=== PATIENT | male | born 1960 | race Caucasian/White ===

== ENCOUNTER 2020-12-12 10:53 | Inpatient (IN) | payer MEDICAID ==
[~2020-12-12] VITALS: Ht 165.1 cm; Wt 69.9 kg
[2020-12-12] MEDS ORDERED: HYDROMORPHONE 1 MG/1 ML DISP.SYRIN IM ONE (11:15)
[2020-12-12] MEDS ORDERED: ONDANSETRON ODT 4 MG TAB.RAPDIS SL ONE (11:15)
[2020-12-12] MEDS ORDERED: ONDANSETRON ODT 4 MG TAB.RAPDIS ONE (11:24)
[2020-12-12] MEDS ORDERED: HYDROMORPHONE 1 MG/1 ML DISP.SYRIN ONE (11:24)
--- NOTE | 2020-12-12 11:43 | NUR ---
Pt was rollerskating, tripped and another skater fell ontop of right lower leg. Pt has swelling about 1/[address] down tibia, unstable area, distal PMS intact, cap refill < 2sec., dorsi and plantar flexion limited. Pt denies CP, SOB, dizziness, n/v, no other complaints, no distress noted.
[2020-12-12] MEDS ORDERED: CEFAZOLIN 2 G in IV DEXTROSE 5% 100 ML IV ONE (14:00)
[2020-12-12] MEDS ORDERED: Z GUARD REMEDY PASTE 57 GM TUBE TOP PRN (15:15)
[2020-12-12] MEDS ORDERED: HYDROCODONE/APAP 5-325MG TABLET PO PRN (15:15)
[2020-12-12] MEDS ORDERED: IV NS 1000 ML 1,000 ML IV PRN (15:15)
[2020-12-12] MEDS ORDERED: MAGNESIUM HYDROXIDE 30 ML LIQUID UDC PO PRN (15:15)
[2020-12-12] MEDS ORDERED: ACETAMINOPHEN 325 MG TABLET PO PRN (15:15)
[2020-12-12] MEDS ORDERED: ONDANSETRON 4 MG/2 ML VIAL IV PRN (15:15)
[2020-12-12 15:23] LABS: BASOPHILS # (AUTO) 0.1 K/uL (0.0-8.0); BASOPHILS % (AUTO) 0.3 % (0.0-2.0); EOSINOPHILS % (AUTO) 0.1 % (0.0-7.0); HEMATOCRIT 49.8 % (36.7-47.1); HEMOGLOBIN 16.6 g/dL (12.5-16.3); LYMPHOCYTES # (AUTO) 1.6 K/uL (20.0-40.0); LYMPHOCYTES % (AUTO) 10.4 % (20.5-51.5); MEAN CORPUSCULAR HEMOGLOBIN 28.5 uug (23.8-33.4); MEAN CORPUSCULAR HGB CONC 33 g/dL (32.5-36.3); MEAN CORPUSCULAR VOLUME 85.6 fL (73.0-96.2); MONOCYTES % (AUTO) 6.8 % (0.0-11.0); NEUTROPHILS # (AUTO) 12.5 K/uL (1.8-8.9); NEUTROPHILS % (AUTO) 82.4 % (38.5-71.5); PLATELET COUNT (AUTO) 353 K/uL (152-348); RED BLOOD CELL COUNT(AUTO) 5.81 MIL/uL (4.06-5.63); WHITE BLOOD COUNT (AUTO) 15.2 K/uL (3.6-10.2)
[2020-12-12] MEDS ORDERED: CEFAZOLIN 1 G VIAL ONE (15:23)
--- NOTE | 2020-12-12 15:45 | NUR ---
Pt resting in bed, no further complaints, no distress noted. States pain is controlled.
[2020-12-12 16:05] LABS: BILIRUBIN,DIRECT 0.2 mg/dL (0.0-0.2); BILIRUBIN,TOTAL 0.8 mg/dL (0.2-1.0); CREATININE 0.8 mg/dL (0.6-1.3); POTASSIUM 3.7 mmol/L (3.5-5.1)
--- NOTE | 2020-12-12 18:45 | NUR ---
long leg posterior splint applied and secured with wrap. PMS intact after, cap refill < 2sec.
[2020-12-12] MEDS ORDERED: ACETAMINOPHEN 325 MG TABLET ONE (22:52)
--- NOTE | 2020-12-13 00:10 | NUR ---
Patient is resting in bed peacefully, no distress noted, no complaints.
--- NOTE | 2020-12-13 04:32 | NUR ---
Patient is resting in bed with eyes closed, no distress noted at this time.
--- NOTE | 2020-12-13 07:42 | NUR ---
(Pandemic disaster charting with no appropriate staffing ratio obeserved in ER) Script Artist assumes care : Patient is AOx4, patient is irritated re:delay in ortho surgery for his fractured extremity, respiration:easy, distal pulses to affected site: strong & palpable, patient is able to move all toes, CMS intact, +posterior leg mold is intact, pending available inpatient nonCOVID medical-surgical bed & nurse@this time, patient denies intolerable pains. Comfort & safety measures maintained.
--- NOTE | 2020-12-13 08:54 | NUR ---
ER staff explained re: COVID pandemic impact on bed & staffing availability and plan of care for extremity fracture (in [place] language) by RN Jose. Patient is understanding, calm & cooperative, still no bed or inpatient nurse available@this time, NPO maintained.
[2020-12-13 10:28] LABS: BASOPHILS # (AUTO) 0.1 K/uL (0.0-8.0); BASOPHILS % (AUTO) 0.5 % (0.0-2.0); EOSINOPHILS # (AUTO) 0.1 K/uL (0.0-0.7); EOSINOPHILS % (AUTO) 1.1 % (0.0-7.0); HEMATOCRIT 49.6 % (36.7-47.1); HEMOGLOBIN 16.5 g/dL (12.5-16.3); LYMPHOCYTES # (AUTO) 1.8 K/uL (20.0-40.0); LYMPHOCYTES % (AUTO) 16.9 % (20.5-51.5); MEAN CORPUSCULAR HEMOGLOBIN 28.6 uug (23.8-33.4); MEAN CORPUSCULAR HGB CONC 33 g/dL (32.5-36.3); MEAN CORPUSCULAR VOLUME 86.2 fL (73.0-96.2); MONOCYTES # (AUTO) 1.2 K/uL (2.0-10.0); MONOCYTES % (AUTO) 11.9 % (0.0-11.0); NEUTROPHILS # (AUTO) 7.3 K/uL (1.8-8.9); NEUTROPHILS % (AUTO) 69.6 % (38.5-71.5); PLATELET COUNT (AUTO) 322 K/uL (152-348); RED BLOOD CELL COUNT(AUTO) 5.75 MIL/uL (4.06-5.63); WHITE BLOOD COUNT (AUTO) 10.5 K/uL (3.6-10.2)
[2020-12-13 10:41] LABS: BILIRUBIN,TOTAL 1.7 mg/dL (0.2-1.0); CREATININE 0.8 mg/dL (0.6-1.3); MAGNESIUM 2.5 mg/dL (1.8-2.4); PHOSPHOROUS 2.6 mg/dL (2.5-4.9); TOTAL PROTEIN, SERUM 7.6 g/dL (6.4-8.2)
--- NOTE | 2020-12-13 11:56 | NUR ---
No acute change in condition seen, still no bed or inpatient nurse available@this time
--- NOTE | 2020-12-13 12:21 | NUR ---
SBAR report given to Tiffanie on m/s floor, pt to be admitted to room 222.
--- NOTE | 2020-12-13 12:40 | NUR ---
Pt trans to m/s floor room 222, NAD noted.
[2020-12-13 13:00] VITALS: BP 183/94
--- NOTE | 2020-12-13 13:00 | NUR ---
Received patient on gurney from the ER. Report taken from ER nurse. Patient is stable and no sign of distress noted. Patient is on room air, he also has a right foot fracture that is splinted and wrapped. Safety precautions are in place with continue to monitor.
[2020-12-13] MEDS: HYDROMORPHONE 1 MG/1 ML DISP.SYRIN IV PRN (15:20)
--- NOTE | 2020-12-13 15:45 | NUR ---
Dr Patiño called to verify that patient will be ready for Tibial nailing procedure scheduled for tomorrow at 0800. Patient should be NPO after midnight. Consent will be signed and in chart for procedure. Will also endorse to the oncoming nurse. Will continue to monitor.
[2020-12-13 16:00] VITALS: BP 166/83
--- NOTE | 2020-12-13 16:32 | NUR ---
Patient refused to sign the procedure consent because he does not want any metal in his body. He would rather a cast. Left the consent in the chart. Will continue to monitor.
[2020-12-13 19:55] VITALS: BP 170/89
--- NOTE | 2020-12-13 20:00 | NUR ---
Patient is resting in bed, no sign of distress noted. Gave all medications as ordered. Safety precautions in place. Will endorse to oncoming nurse.
[2020-12-14] VITALS (9 sets, daily range): BP systolic 123–159; BP diastolic 67–102
--- NOTE | 2020-12-14 01:39 | NUR ---
Pt BP elevated 159/67. Denies pain at this time. Notified MD Benoit of elevated BP trend. New order given for Vasotec 2.5 mg IV Q6hr PRN SBP>150. Will administer per order and continue to monitor patient BP.
[2020-12-14] MEDS: ENALAPRILAT DIHYDRATE 1.25 MG/1 ML VIAL IV PRN ×2 (02:43→14:35)
[2020-12-14] MEDS: HYDROMORPHONE 1 MG/1 ML DISP.SYRIN IV PRN (05:03)
--- NOTE | 2020-12-14 06:56 | NUR ---
Pt resting in bed. NPO after midnight maintained. No s/s of acute distress at this moment. Pt c/o pain and discomfort, medication given per order. All needs were met and attended to. Safety precautions in place.
[2020-12-14] MEDS ORDERED: VANCOMYCIN 1000 MG VIAL ONE (07:29)
[2020-12-14] MEDS ORDERED: BUPIVACAINE PF 0.5% 30 ML VIAL ONE (07:29)
[2020-12-14] MEDS ORDERED: POLYMYXIN B SULFATE 500,000 UNITS, BACITRACIN 50,000 UNITS, NORMAL SALINE 20 ML MC ONE ×3 (07:30)
--- NOTE | 2020-12-14 07:30 | NUR ---
Received patient awake, alert and oriented times 4. No sign of distress noted. Patient is NPO in preparation for surgery. Safety precautions are in place. Will continue to monitor.
--- NOTE | 2020-12-14 07:45 | NUR ---
Patient off the floor for surgical procedure. Will continue to monitor when back on the floor.
[2020-12-14] MEDS ORDERED: MIDAZOLAM HCL 10 MG/2 ML VIAL ONE (08:03)
[2020-12-14] MEDS ORDERED: FENTANYL CITRATE 100 MCG/2 ML AMPUL ONE ×3 (08:03→11:53)
[2020-12-14] MEDS ORDERED: SEVOFLURANE 250 ML BOTTLE ONE (10:02)
--- NOTE | 2020-12-14 13:24 | NUR ---
Patient is back in room from surgery. Report taken from MICHELLE Shields MD orders already faxed to pharmacy. Will give all medications as ordered. Patient is on 2 L of oxygen and saturating at 98%. No sign of respiratory distress noted at this time. Patient is on phone talking to family member. BP is 147/94 with a HR of 102. Will continue to monitor.
[2020-12-14] MEDS: MORPHINE SULFATE 4 MG/1 ML DISP.SYRIN IV PRN ×2 (14:35→23:27)
[2020-12-14] MEDS: POTASSIUM CHLORIDE 20 MEQ in IV D5 1/2 NS 1000 ML 1,000 ML IV PRN (14:35)
[2020-12-14] MEDS: CEFAZOLIN 1 G in IV DEXTROSE 5% 50 ML IV SCH (17:24)
--- NOTE | 2020-12-14 19:04 | NUR ---
Patient is resting in bed. No sign of distress noted. Patient is now on 2L of oxygen NC. Gave all medications as ordered. Patient is able to wiggle his toes, slightly raise his right leg and cap refill is wnl. Safety precaution are in place. Will endorse to oncoming nurse.
[2020-12-15] MEDS: CEFAZOLIN 1 G in IV DEXTROSE 5% 50 ML IV SCH (01:03)
[2020-12-15] MEDS: HYDROCODONE/APAP 10-325 MG TABLET PO PRN ×5 (01:40→21:51)
[2020-12-15 04:00] VITALS: BP 144/80
[2020-12-15] MEDS: POTASSIUM CHLORIDE 20 MEQ in IV D5 1/2 NS 1000 ML 1,000 ML IV PRN ×2 (07:00→23:27)
--- NOTE | 2020-12-15 07:00 | NUR ---
Patient is resting in bed. No s/s of acute distress noted at this time. Patient is on 2L NC. All needs were met and attended to. Patient is able to wiggle his toes, slightly raise his right leg, cap refill WNL, denies feeling of numbness and tingling. Safety precaution are in place. Will endorse to oncoming shift.
[2020-12-15 11:46] VITALS: BP 154/74
[2020-12-15] MEDS: PANTOPRAZOLE SODIUM 40 MG TABLET.DR PO SCH (12:28)
[2020-12-15 16:08] VITALS: BP 156/82
--- NOTE | 2020-12-15 19:00 | NUR ---
resting in bed, medicated x2 this shift for post op pain, kept leg elevated with pillow, splint in place, able to move toes well, pedal pulse palpated, dsg intact, needs attended, no distress noted, call light within reach
[2020-12-15 19:42] VITALS: BP 149/78
[2020-12-16] VITALS (7 sets, daily range): BP systolic 131–160; BP diastolic 62–90
--- NOTE | 2020-12-16 00:47 | NUR ---
PATIENT WAS IN PAIN AND RATED 7 OUT OF 10. I ADMINISTERED NORCO AND HE REQUESTED THAT I CONTINUE THE NORCO BEFORE THE DOSAGE WEARS OFF SO THAT HE CAN TOLERATE THE PAIN. REARRANGED HIS FOOT ON THE PILLOWS TO KEEP IT ELEVATED. PAIN HAS IMPROVED TO 3 OUT OF 10.
[2020-12-16] MEDS: HYDROCODONE/APAP 10-325 MG TABLET PO PRN ×6 (00:59→22:33)
[2020-12-16] MEDS: PANTOPRAZOLE SODIUM 40 MG TABLET.DR PO SCH (06:16)
[2020-12-16] MEDS: ENALAPRILAT DIHYDRATE 1.25 MG/1 ML VIAL IV PRN (10:33)
[2020-12-16] MEDS: POTASSIUM CHLORIDE 20 MEQ in IV D5 1/2 NS 1000 ML 1,000 ML IV PRN (15:15)
--- NOTE | 2020-12-16 19:30 | NUR ---
RECEIVED PT AWAKE , ALERT AND ORIENTEDX4. PT IN NO ACUTE DISTRESS. . SAFETY AND COMFORT PROVIDED. IV INTACT. WILL CONTINUE TO MONITOR.
[2020-12-17 04:30] VITALS: BP 153/84
[2020-12-17] MEDS: POTASSIUM CHLORIDE 20 MEQ in IV D5 1/2 NS 1000 ML 1,000 ML IV PRN (04:58)
[2020-12-17] MEDS: HYDROCODONE/APAP 10-325 MG TABLET PO PRN ×4 (05:55→21:31)
[2020-12-17] MEDS: PANTOPRAZOLE SODIUM 40 MG TABLET.DR PO SCH (06:04)
--- NOTE | 2020-12-17 06:14 | NUR ---
PT SLEPT COMFORTABLY.NORCO PRN GIVEN AT 2233HAND 0555H . PT TOLERATED IT WELL. KEPT LEG ELEVATED WITH PILLOW, SPLINT IN PLACE, ABLE TO MOVE TOES TOES WELL, PEDAL PULSE PALPATED, DRESSING INTACT. NEEDS ATTENDED. NO ACUTE DISTRESS. CALL LIGHT WITHIN REACH. SAFETY AND COMFORT PROVIDED. WILL ENDORSE TO INCOMING NURSE FOR CONTINUITY OF CARE.
[2020-12-17 06:56] VITALS: BP 140/78
--- NOTE | 2020-12-17 08:00 | NUR ---
awake alert and oriented, denies of pain at this time, right leg with splint elevated on pillow, good circulation noted, call light within reach
[2020-12-17 11:48] VITALS: BP 132/73
[2020-12-17 16:33] VITALS: BP 138/76
--- NOTE | 2020-12-17 19:30 | NUR ---
RECEIVED PT AWAKE , ALERT AND ORIENTEDX4. PT IN NO ACUTE DISTRESS. . SAFETY AND COMFORT PROVIDED. IV INTACT. WILL CONTINUE TO MONITOR.
[2020-12-17 20:00] VITALS: BP 140/79
[2020-12-18] MEDS: HYDROCODONE/APAP 10-325 MG TABLET PO PRN ×4 (03:51→19:15)
[2020-12-18 04:19] VITALS: BP 139/84
[2020-12-18] MEDS: PANTOPRAZOLE SODIUM 40 MG TABLET.DR PO SCH (06:15)
--- NOTE | 2020-12-18 06:21 | NUR ---
PT SLEPT INTERMITTENTLY. PT IN NO ACUTE DISTRESS. PEDAL PULSE NOTED. PRESCRIBED MEDICATION GIVEN AND PT TOLERATED IT WELL.NORCO PRN GIVEN AT 2131H and 0351H. SAFETY AND COMFORT PROVIDED. WILL ENDORSE TO INCOMING NURSE FOR CONTINUITY OF CARE..
--- NOTE | 2020-12-18 07:00 | NUR ---
Received patient awake, alert and oriented times 4. No sign of distress noted Safety precautions are in place. Will continue to monitor.call light with in reach
[2020-12-18 08:43] VITALS: BP 137/78
[2020-12-18 12:29] VITALS: BP 162/92
[2020-12-18] MEDS ORDERED: ONDA4TAB5 PO (13:56)
[2020-12-18] MEDS ORDERED: HYDR-4354 PO (13:56)
[2020-12-18] MEDS ORDERED: HYDR-4384 PO ×2 (13:58→13:59)
[2020-12-18 20:00] VITALS: BP 155/86
--- NOTE | 2020-12-18 21:15 | NUR ---
PT DISCHARGE VIA [facility]. MARTINA PICKED HIM UP. DISCHARGE PAPERS GIVEN. DISCHARGE INSTRUCTIONS GIVEN. PT UNDERSTOOD IT. IV ACCESS TAKEN OFF AND ID WRIST BAND. IMTIAZ FROM [facility] CALLED REGARDING PT. I TOLD IMTIAZ THAT PT NEEDS ASSISTIVE DEVICE LIKE BEDSIDE COMMODE, WALKER AND WE ARE PROVIDING HIM CRUTCHES. IMTIAZ STATED HE WILL ENDORSE IT TO INCOMING CASE MANAGEMENT. PT IN NO ACUTE DISTRESS. PT VITAL SIGNS STABLE.
== END 2020-12-18 21:00 | disposition home or self-care (01) | DRG 313 ==
LOC: ER 10:53 → TRANSITION 18:22 → MED 12-13 12:25
PROVIDERS: ADMIT Nurse Practitioner Acute Care; ATTEND Nurse Practitioner Acute Care
PROC: 0QHG06Z Insertion of Intramedullary Internal Fixation Device into Right Tibia, Open Approach (ICD-10-PCS; principal; 2020-12-14)
PROC: 0QHJ06Z Insertion of Intramedullary Internal Fixation Device into Right Fibula, Open Approach (ICD-10-PCS; principal; 2020-12-14)
PROC: 0QUG07Z Supplement Right Tibia with Autologous Tissue Substitute, Open Approach (ICD-10-PCS; principal; 2020-12-14)
DX: S82.251A Displaced comminuted fracture of shaft of right tibia, initial encounter for closed fracture (principal); S82.451A Displaced comminuted fracture of shaft of right fibula, initial encounter for closed fracture; V00.111A Fall from in-line roller-skates, initial encounter; Y93.51 Activity, roller skating (inline) and skateboarding; Y92.89 Other specified places as the place of occurrence of the external cause; D72.829 Elevated white blood cell count, unspecified; I10 Essential (primary) hypertension; Z20.822 Contact with and (suspected) exposure to COVID-19
CPT/HCPCS: 36415; 71045; 73590; 73610; 83735; 84100; 85025; 85730; 86850; 86900; 86901; 93005; A4649; C1713; C1769; G0378; J0690; J1170; J2250; J2270; J3010; J3370; J3480; J3490; J7060; Q0162